=== PATIENT | male | born 1945 | race Hispanic/Latino ===

== ENCOUNTER 2020-04-16 09:25 | Inpatient (IN) | payer OTHER ==
--- NOTE | 2020-04-11 14:53 | Diagnostic Imaging Report ---
EXAMINATION: CHEST 2 VIEWS INDICATION: Pre-operative COMPARISON: None FINDINGS: LINES/TUBES:None LUNGS:The lungs are well-inflated. No focal consolidation or pulmonary edema. PLEURA:No pleural effusion or pneumothorax. MEDIASTINUM:The cardiomediastinal silhouette appears normal in size and shape. BONES/SOFT TISSUES:No acute osseous injury. ABDOMEN:No free air under the diaphragm. IMPRESSION: No focal pneumonia or pulmonary edema. Signed by: Sree Amato MD on 04/11/2020 2:49 PM
[2020-04-11 15:02] LABS: BASOPHILS # (AUTO) 0.1 (0.0-0.1); BASOPHILS % 1.1 % (0.0-1.0); EOSINOPHILS # (AUTO) 0.2 (0.0-0.4); HEMATOCRIT 42.2 % (38.2-49.6); HEMOGLOBIN 13.7 g/dL (14.0-18.0); LYMPHOCYTES # (AUTO) 1.3 (1.0-3.2); LYMPHOCYTES % 20.3 % (18.0-39.1); MEAN CORPUSCULAR HEMOGLOBIN 28.7 pg (28-32); MEAN CORPUSCULAR HGB CONC 32.5 g/dL (31-35); MEAN CORPUSCULAR VOLUME 88.3 fL (81-99); MONOCYTES # (AUTO) 0.8 (0.2-0.8); MONOCYTES % 12.3 % (4.4-11.3); NEUTROPHILS # (AUTO) 4.2 (2.1-6.9); PLATELET COUNT 180 x10e3/uL (140-360); RED BLOOD COUNT 4.78 x10e6/uL (4.3-5.7)
[2020-04-11 15:06] LABS: INR 0.97; PROTHROMBIN TIME 13.5 seconds (11.9-14.5)
[2020-04-11 15:07] LABS: PARTIAL THROMBOPLASTIN TIME 29.7 seconds (23.8-35.5)
[2020-04-11 15:13] LABS: ANION GAP 14.5 mmol/L (8-16); CALCIUM 9.2 mg/dL (8.4-10.2); CREATININE, SERUM 1.26 mg/dL (0.72-1.25); POTASSIUM 4.5 mmol/L (3.5-5.1)
[~2020-04-16] VITALS: Ht 180.3 cm; Wt 92.1 kg
[~2020-04-16 09:25] MED LIST: ATORVASTATIN CA20 MG PO; BUPROPION HCL100 MG PO; FINASTERIDE5 MG PO; FLOMAX0.4 MG PO; LORATADINE10 MG PO; PROTONIX20 MG PO; ZOLPIDEM TARTRAT5 MG PO
[2020-04-16] MEDS ORDERED: CEFEPIME 1GM/NS 0.9% 50 ML 50 ML IV ONE (09:54)
[2020-04-16] MEDS ORDERED: GENTAMICIN 80MG/NS 100 ML 200 ML IV ONE (09:55)
[2020-04-16] MEDS ORDERED: B&O 60MG R/S 60 MG SUPP PR ONE (12:07)
[2020-04-16] MEDS ORDERED: IOPAMIDOL 300MG/ML 50ML INFUS..BTL IV ONE (12:07)
[2020-04-16] MEDS ORDERED: DEXAMETHASONE SOD PHOS INJ 4 MG/ML VIAL ONE (12:22)
[2020-04-16] MEDS ORDERED: LIDOCAINE HCL 2% LOCAL INJ 5 ML SDV VIAL INJ ONE (12:22)
[2020-04-16] MEDS ORDERED: SEVOFLURANE INHAL SOLN 250 ML PEN BTL ONE (12:22)
[2020-04-16] MEDS ORDERED: ACETAMINOPHEN 1000 MG/100 ML IV ONE (12:22)
[2020-04-16] MEDS ORDERED: ONDANSETRON HCL INJ 2MG/ML 2ML 2 MG/ML VIAL ONE (12:22)
[2020-04-16] MEDS ORDERED: PROPOFOL IV EMULSION 10 MG/ML 20 ML VIAL ONE (12:22)
[2020-04-16] MEDS ORDERED: ACETAMINOPHEN/CODEINE 300MG - 30MG TAB PO PRN (14:15)
[2020-04-16] MEDS ORDERED: DIPHENHYDRAMINE HCL 25 MG CAP PO PRN (14:15)
[2020-04-16] MEDS ORDERED: ONDANSETRON HCL INJ 2MG/ML 2ML 2 MG/ML VIAL IV PRN (14:15)
[2020-04-16] MEDS ORDERED: B&O 60MG R/S 60 MG SUPP PR PRN (14:15)
--- OUTSIDE RECORDS SUMMARY | 2020-04-16 14:34 | XMS REPORT | Continuity of Care Document ---
Author Author [facility] t Organization [facility] Address [address] [place] [address] Phone Unavailable Care Team Providers Care Commercial Drone Pilot Name Role Phone GHANSHYAM HERMAN Unavailable Payers Payer Name Policy Type Policy Number Effective Date Expiration Date S ource Problems This patient has no known problems. Allergies, Adverse Reactions, Alerts Allergy Name Allergy Type Status Severity Reaction(s) Onset Date Inacti ve Date Treating Clinician Comments Source aspirin DA Active [place] 2015-11-27 00:00:00 [facility] Medications This patient has no known medications. Procedures This patient has no known procedures. Results Test Description Test Time Test Comments Results Result Comments Source CHEST 2 VIEWS 2020-04-11 14:49:00 [facility] [address] [address] Patient Name: KAYE SERRANO MR #: [id number] : 1945 Age/Sex: 74/M Req #: [id number] Adm Physician: Ordered by: GHANSHYAM HERMAN MD Report #: [id number] Location: OR Room/Bed: Procedure: [id number] DX/CHEST 2 VIEWS Exam Date: 04/11/20 Exam Time: 1430 REPORT STATUS: Signed EXAMINATION: CHEST 2 VIEWS INDICATION: Pre-operative COMPARISON: None FINDINGS: LINES/TUBES:None LUNGS:The lungs are well-inflated. No focal consolidation or pulmonary edema. PLEURA:No pleural effusion or pneumothorax. MEDIASTINUM:The cardiomediastinal silhouette appears normal in size and shape. BONES/SOFT TISSUES:No acute osseous injury. ABDOMEN:No free air under the diaphragm. IMPRESSION: No focal pneumonia or pulmonary edema. Signed by: Jessei Vazquez MD on 04/11/2020 2:49 PM Dictated By: JESSIE VAZQUEZ MD 1449 Transcribed By: COLLETTE on 04/11/20 1449 COPY TO: GHANSHYAM HERMAN MD - CT CHEST W/O CONTRAST 2018-12-19 10:33:00 Na me: KAYE SERRANO [facility] : 1945 Age/S: 73 / M [address] [facility] Unit #: [id number] Loc: [place] [address] Phys: Xenia Pinedo MD Acct: [id number] Dis Date: Status: REG CLI PHONE #: [phone] Exam Date: 12/19/2018 1010 FAX #: [phone] Reason: COUGH EXAMS: CPT CODE: [id number] CT CHEST W/O CONTRAST 38866 HISTORY: Cough. COMPARISON: November 29, 2015. CT chest without contrast: The lungs are clear of infiltrates, effusion or congestion no bronchiectasis, honeycombing or fibrosis or endobronchial lesions. Normal caliber unopacified aorta and pulmonary arteries. Unremarkable thyroid glands. Esophageal wall is not thickened. No pathologic adenopathy. Cardiac silhouette is normal without pericardial effusion. 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 Subcutaneous tissues and the musculature are normal in appearance. No lytic or blastic lesions are noted within the bony skeleton. DJD. IMPRESSION: The lungs are clear of infiltrates, effusion or congestion. No bronchiectasis, honeycombing or fibrosis. No pathologic adenopathy. at 1033 Reported and signed by: Adebayo Servin M.D. CC: Xenia Pinedo MD; Jessee Fields DO Technologist:Dayron Watters RT(R),(MR),(CT); CTDI: DLP: Trnscb Date/Time: 12/19/2018 (1033) [email or web address] Orig Print D/T: S: 12/19/2018 (1037) CTDI: DLP: PAGE 1 Signed Report - CT CHEST W/O CONTRAST 2018-12-19 10:33:00 Na me: MAGGIEKAYE YONG [facility] : 1945 Age/S: 73 / M [address] [facility] Unit #: [id number] Loc: [place] [address] Phys: Xenia Pinedo MD Acct: [id number] Dis Date: Status: DEP CLI PHONE #: [phone] Exam Date: 12/19/2018 1010 FAX #: [phone] Reason: COUGH EXAMS: CPT CODE: [id number] CT CHEST W/O CONTRAST 62149 HISTORY: Cough. COMPARISON: November 29, 2015. CT chest without contrast: The lungs are clear of infiltrates, effusion or congestion no bronchiectasis, honeycombing or fibrosis or endobronchial lesions. Normal caliber unopacified aorta and pulmonary arteries. Unremarkable thyroid glands. Esophageal wall is not thickened. No pathologic adenopathy. Cardiac silhouette is normal without pericardial effusion. 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 Subcutaneous tissues and the musculature are normal in appearance. No lytic or blastic lesions are noted within the bony skeleton. DJD. IMPRESSION: The lungs are clear of infiltrates, effusion or congestion. No bronchiectasis, honeycombing or fibrosis. No pathologic adenopathy. at 1033 Reported and signed by: Adebayo Servin M.D. CC: Xenia Pinedo MD; Jessee Fields DO Technologist:Dayron Watters RT(R),(MR),(CT); CTDI: DLP: Trnscb Date/Time: 12/19/2018 (1033) [email or web address] Orig Print D/T: S: 12/19/2018 (1037) CTDI: DLP: PAGE 1 Signed Report - XR CHEST 2 V 2017-09-29 12:19:00 Name: KAYE DA SILVA [facility] : 1945 Age/S:71 /M [address] [facility] Unit#:[id number] Loc: [place] [address] Phys: Jessee Fields DO Dis Date: PHONE #: [phone] Status: DEP CLI FAX #: [phone] Exam Date: 09/29/2017 Reason: CHRONIC COUGH EXAMS: CPT CODE: [id number] XR CHEST 2 V 59942 HISTORY: CHRONIC COUGH TECHNIQUE: PA and lateral chest x-ray COMPARISON: 11/27/15 FINDINGS: No airspace consolidation or pleural effusion. Normal heart size. Mediastinal silhouette is unremarkable. Thoracic spondylosis. IMPRESSION: No radiographic evidence of acute cardiopulmonary process. at 1219 Reported and signed by: Em Brink D.O. CC: Jessee Fields DO Technologist: Jose Angel Temple Trnscrpt Data: 09/29/2017 (1219) [email or web address] Orig Print D/T: S: 09/29/2017 (1222) PAGE 1 Signed Report - CT CHEST W/CONTRAST 2015-11-29 12:59:00 Name : KAYE SERRANO [facility] : 1945 Age/S: 70 / M [address] [facility] Unit #: [id number] Loc: [place] [address] Phys: Jeff Garcia MD Acct: [id number] Dis Date: Status: UNK PHONE #: [phone] Exam Date: 11/29/2015 1041 FAX #: [phone] Reason: SOB and chronic cough EXAMS: CPT CODE: [id number] CT CHEST W/CONTRAST [address]5827 EXAM: CT of the chest without contrast; INFORMATION: Chronic cough, COPD versus pneumonia; TECHNIQUE AND FINDINGS: 5 mm cuts were obtained through the chest during intravenous infusion of contrast material. Lung windows show no parenchymal abnormalities. There are no pleural effusions; no pneumothorax. This good enhancement of the pulmonary arteries; no filling defects. Small calcified plaques in the aortic arch; otherwise, the thoracic aorta is also unremarkable; no aneurysm, no dissection. No hilar or mediastinal adenopathy. IMPRESSION: Unremarkable CT scan of the chest; no acute abnormalities. at 8071 Reported and signed by: Andre Odonnell M.D. CC: Jeff Garcia Technologist:Dariela Jean Baptiste RT(R),CT; CTDI: DLP: Trnscb Date/Time: 11/29/2015 (9487) [email or web address] Orig Print D/T: S: 11/29/2015 (1121) CTDI: DLP: PAGE 1 Signed Report - XR CHEST 2 V 2015-11-27 17:08:00 FAX: Reg Schmitz [place]: St: [facility] -- Name: KAYE SERRANO [facility] : 1945 Age/S: 70/M [address] [facility] Unit #: [id number] Loc: [place] [address] Phys: Reg Schmitz MD Acct: [id number] Dis Date: Status: UNK PHONE #: [phone] Exam Date: 11/27/2015 9304 FAX #: [phone] Reason: cough EXAMS: CPT CODE: [id number] XR CHEST 2 V 84162 REASON FOR EXAM: cough Exam Order Date: 11/27/2015 4:43 PM Ordering Josafat: Reg Schmitz MD PROCEDURE: - XR CHEST 2 V COMPARISON: FINDINGS: PA and lateral views of the chest show clear lungs. No evidence of consolidation. No evidence of effusion. The heart size is within normal limits. Pulmonary vasculatures are unremarkable. The osseous structures are grossly intact. IMPRESSION: No active disease. at 1704 Reported and signed by: Aquilino Yeager M.D. CC: Reg Schmitz MD Technologist: Fredrick Mcdowell RT(R) Trnscrd Date/Time/By: 11/27/2015 (5344) : By: TheodoreL Orig Print D/T: S: 11/27/2015 (5624) PAGE 1 Signed Report
[2020-04-16 15:03] LABS: BASOPHILS % 0.6 % (0.0-1.0); EOSINOPHILS # (AUTO) 0.1 (0.0-0.4); EOSINOPHILS % 1.7 % (0.0-6.0); HEMATOCRIT 41.5 % (38.2-49.6); HEMOGLOBIN 13.1 g/dL (14.0-18.0); LYMPHOCYTES % 13.9 % (18.0-39.1); MEAN CORPUSCULAR HEMOGLOBIN 28.5 pg (28-32); MEAN CORPUSCULAR HGB CONC 31.6 g/dL (31-35); MEAN CORPUSCULAR VOLUME 90.4 fL (81-99); MONOCYTES # (AUTO) 0.3 (0.2-0.8); MONOCYTES % 3.9 % (4.4-11.3); NEUTROPHILS # (AUTO) 5.6 (2.1-6.9); NEUTROPHILS % 79.5 % (38.7-80.0); PLATELET COUNT 146 x10e3/uL (140-360); RED BLOOD COUNT 4.59 x10e6/uL (4.3-5.7); RED CELL DISTRIBUTION WIDTH 14.6 % (11.7-14.4)
[2020-04-16 15:21] LABS: ANION GAP 14.3 mmol/L (8-16); BLOOD UREA NITROGEN 16 mg/dL (7-26); BUN/CREATININE RATIO 15 (6-25); CALCIUM 8.5 mg/dL (8.4-10.2); CARBON DIOXIDE 22 mmol/L (22-29); CHLORIDE 110 mmol/L (98-107); CREATININE, SERUM 1.07 mg/dL (0.72-1.25); EST GLOMERULAR FILTRATION RATE > 60 ML/MIN (60-); GLUCOSE 114 mg/dL (74-118); POTASSIUM 4.3 mmol/L (3.5-5.1); SODIUM 142 mmol/L (136-145)
[2020-04-16 15:56] LABS: LYMPHOCYTES % (MANUAL) 13 % (19-48); MONOCYTES % (MANUAL) 3 % (3.4-9.0); NEUTROPHILS % (MANUAL) 81 % (40-74); RBC MORPHOLOGY COMMENT NORMAL
[2020-04-16 15:57] LABS: PLATELET ESTIMATE ADEQUATE; PLATELET MORPHOLOGY COMMENT NORMAL
[2020-04-16] MEDS ORDERED: FENTANYL CITRATE/PF 100MCG/2 ML INJ ONE (16:00)
[2020-04-16 16:35] VITALS: BP 135/73
--- NOTE | 2020-04-16 16:35 | NUR ---
patient arrived to room 115. dark, red output noticed in [place]. speed of CBI increased and urine turned clearer. patient denied any pain or any needs.
[2020-04-16] MEDS: D5.45%NS/KCL 20MEQ 1,000 ML IV SCH (18:02)
[2020-04-16] MEDS: DOCUSATE SODIUM 100 MG CAP PO SCH (18:02)
[2020-04-16] MEDS: PANTOPRAZOLE SOD 40 MG TABEC PO SCH (18:20)
[2020-04-16] MEDS: ACETAMINOPHEN 1000 MG/100 ML IV SCH (18:20)
[2020-04-16] MEDS: PHENAZOPYRIDINE HCL 100 MG TAB PO SCH (18:20)
--- NOTE | 2020-04-16 19:45 | NUR ---
Dr. Weinstein paged to notify him of color of output via CBI. waiting for return page.
[2020-04-16 20:00] VITALS: BP 107/64
[2020-04-16] MEDS ORDERED: ZOLPIDEM TARTRATE 5 MG TAB PO SCH (21:00)
[2020-04-16] MEDS ORDERED: ATORVASTATIN 20 MG TAB PO SCH (21:00)
[2020-04-16] MEDS: ZOLPIDEM TARTRATE 10 MG TAB PO SCH (22:03)
[2020-04-16] MEDS: ATORVASTATIN 40 MG TAB PO SCH (22:03)
[2020-04-17] VITALS (8 sets, daily range): BP systolic 106–138; BP diastolic 59–76
[2020-04-17] MEDS: ACETAMINOPHEN 1000 MG/100 ML IV SCH ×3 (01:10→11:42)
[2020-04-17] MEDS: D5.45%NS/KCL 20MEQ 1,000 ML IV SCH ×5 (01:36→22:17)
[2020-04-17 05:54] LABS: BASOPHILS % 0.3 % (0.0-1.0); EOSINOPHILS # (AUTO) 0.1 (0.0-0.4); EOSINOPHILS % 0.4 % (0.0-6.0); HEMATOCRIT 36.1 % (38.2-49.6); HEMOGLOBIN 11.8 g/dL (14.0-18.0); LYMPHOCYTES # (AUTO) 1.4 (1.0-3.2); LYMPHOCYTES % 11.7 % (18.0-39.1); MEAN CORPUSCULAR HEMOGLOBIN 28.6 pg (28-32); MEAN CORPUSCULAR HGB CONC 32.7 g/dL (31-35); MEAN CORPUSCULAR VOLUME 87.6 fL (81-99); MONOCYTES # (AUTO) 1.3 (0.2-0.8); MONOCYTES % 10.6 % (4.4-11.3); NEUTROPHILS # (AUTO) 9.4 (2.1-6.9); NEUTROPHILS % 76.5 % (38.7-80.0); PLATELET COUNT 178 x10e3/uL (140-360); RED BLOOD COUNT 4.12 x10e6/uL (4.3-5.7); RED CELL DISTRIBUTION WIDTH 14.6 % (11.7-14.4)
[2020-04-17 06:14] LABS: ANION GAP 9.2 mmol/L (8-16); BLOOD UREA NITROGEN 13 mg/dL (7-26); BUN/CREATININE RATIO 12 (6-25); CALCIUM 8.5 mg/dL (8.4-10.2); CARBON DIOXIDE 26 mmol/L (22-29); CHLORIDE 109 mmol/L (98-107); CREATININE, SERUM 1.06 mg/dL (0.72-1.25); EST GLOMERULAR FILTRATION RATE > 60 ML/MIN (60-); GLUCOSE 122 mg/dL (74-118); POTASSIUM 4.2 mmol/L (3.5-5.1); SODIUM 140 mmol/L (136-145)
--- NOTE | 2020-04-17 07:00 | NUR ---
RECEIVED PATIENT RESTING IN BED NO S/S OF DISTRESS. BED LOW, WHEELS LOCKED, SIDE RAILS X2. CALL LIGHT IN REACH WILL CONTINUE TO MONITOR PATIENT.
[2020-04-17] MEDS: PANTOPRAZOLE SOD 40 MG TABEC PO SCH ×2 (08:11→16:28)
[2020-04-17] MEDS: PHENAZOPYRIDINE HCL 100 MG TAB PO SCH ×3 (08:11→18:08)
[2020-04-17] MEDS: CEFTRIAXONE SOD 1 GM/NS 50 ML 50 ML IV SCH (08:11)
[2020-04-17] MEDS: DOCUSATE SODIUM 100 MG CAP PO SCH ×2 (08:11→16:28)
[2020-04-17] MEDS: BUPROPION HCL 100 MG TAB PO SCH (08:11)
[2020-04-17] MEDS: LORATADINE 10 MG TAB PO SCH (08:11)
[2020-04-17] MEDS: ZOLPIDEM TARTRATE 10 MG TAB PO SCH (22:16)
[2020-04-17] MEDS: ATORVASTATIN 40 MG TAB PO SCH (22:16)
[2020-04-18] VITALS: BP 130/79
[2020-04-18 04:00] VITALS: BP 126/77
[2020-04-18] MEDS: D5.45%NS/KCL 20MEQ 1,000 ML IV SCH ×3 (04:59→22:14)
[2020-04-18 05:44] LABS: BASOPHILS # (AUTO) 0.1 (0.0-0.1); BASOPHILS % 0.6 % (0.0-1.0); EOSINOPHILS # (AUTO) 0.3 (0.0-0.4); EOSINOPHILS % 3.3 % (0.0-6.0); HEMATOCRIT 35.5 % (38.2-49.6); HEMOGLOBIN 11.5 g/dL (14.0-18.0); LYMPHOCYTES # (AUTO) 1.7 (1.0-3.2); MEAN CORPUSCULAR HGB CONC 32.4 g/dL (31-35); MEAN CORPUSCULAR VOLUME 89.6 fL (81-99); MONOCYTES % 12.2 % (4.4-11.3); NEUTROPHILS # (AUTO) 5.2 (2.1-6.9); NEUTROPHILS % 62.5 % (38.7-80.0); PLATELET COUNT 149 x10e3/uL (140-360); RED BLOOD COUNT 3.96 x10e6/uL (4.3-5.7); RED CELL DISTRIBUTION WIDTH 14.7 % (11.7-14.4)
[2020-04-18 06:14] LABS: ANION GAP 9.8 mmol/L (8-16); BLOOD UREA NITROGEN 8 mg/dL (7-26); BUN/CREATININE RATIO 8 (6-25); CALCIUM 8.5 mg/dL (8.4-10.2); CARBON DIOXIDE 24 mmol/L (22-29); CHLORIDE 111 mmol/L (98-107); CREATININE, SERUM 0.98 mg/dL (0.72-1.25); EST GLOMERULAR FILTRATION RATE > 60 ML/MIN (60-); GLUCOSE 114 mg/dL (74-118); POTASSIUM 3.8 mmol/L (3.5-5.1); SODIUM 141 mmol/L (136-145)
[2020-04-18 08:18] VITALS: BP 134/78
[2020-04-18] MEDS: PANTOPRAZOLE SOD 40 MG TABEC PO SCH ×2 (08:29→16:28)
[2020-04-18] MEDS: DOCUSATE SODIUM 100 MG CAP PO SCH ×2 (08:29→16:28)
[2020-04-18] MEDS: LORATADINE 10 MG TAB PO SCH (08:29)
[2020-04-18] MEDS: PHENAZOPYRIDINE HCL 100 MG TAB PO SCH ×3 (08:29→16:28)
[2020-04-18] MEDS: BUPROPION HCL 100 MG TAB PO SCH (08:29)
[2020-04-18] MEDS: CEFTRIAXONE SOD 1 GM/NS 50 ML 50 ML IV SCH (08:29)
[2020-04-18 09:16] VITALS: BP 134/78
--- NOTE | 2020-04-18 16:28 | NUR ---
[place] DC. CATHETER TIP INTACT. PATIENT DUE TO VOID.
[2020-04-18 16:51] VITALS: BP 147/87
--- NOTE | 2020-04-18 17:31 | NUR ---
PATIENT HAS VOIDED SINCE SEXTON REMOVAL.
--- NOTE | 2020-04-18 18:51 | NUR ---
3 SERIAL URINES COLLECTED. PATIENT VOIDING. URINE STILL HAS HEMATURIA PRESENT. EDUCATED PATIENT ON INCREASING FLUID INTAKE. CALL LIGHT IN REACH WILL CONTINUE TO MONITOR PATIENT.
--- NOTE | 2020-04-18 19:05 | NUR ---
RECEIVED BEDSIDE SHIFT REPORT FROM PREVIOUS NURSE. CALL LIGHT WITHIN REACH. PATIENT IN BED.
[2020-04-18 20:00] VITALS: BP 154/88
[2020-04-18] MEDS: ATORVASTATIN 40 MG TAB PO SCH (22:11)
[2020-04-18] MEDS: ZOLPIDEM TARTRATE 10 MG TAB PO SCH (22:14)
--- NOTE | 2020-04-18 22:20 | NUR ---
CALLED DR. HERMAN ABOUT THE PATIENT'S URINE WHICH IS STILL RED. DR. HERMAN SAID TO KEEP THE PATIENT OVERNIGHT AND ONLY DISCHARGE THE PATIENT AFTER THE PATIENT HAS 5 CLEAR URINE SAMPLES WITH NO BLOOD.
[2020-04-19 01:01] VITALS: BP 139/78
[2020-04-19 04:00] VITALS: BP 106/51
[2020-04-19 05:44] LABS: BASOPHILS # (AUTO) 0.1 (0.0-0.1); BASOPHILS % 0.7 % (0.0-1.0); EOSINOPHILS # (AUTO) 0.3 (0.0-0.4); EOSINOPHILS % 3.2 % (0.0-6.0); HEMOGLOBIN 11.9 g/dL (14.0-18.0); LYMPHOCYTES # (AUTO) 1.5 (1.0-3.2); LYMPHOCYTES % 14.7 % (18.0-39.1); MEAN CORPUSCULAR HEMOGLOBIN 27.9 pg (28-32); MEAN CORPUSCULAR HGB CONC 32.2 g/dL (31-35); MEAN CORPUSCULAR VOLUME 86.7 fL (81-99); MONOCYTES # (AUTO) 1.5 (0.2-0.8); MONOCYTES % 13.9 % (4.4-11.3); PLATELET COUNT 173 x10e3/uL (140-360); RED BLOOD COUNT 4.27 x10e6/uL (4.3-5.7); RED CELL DISTRIBUTION WIDTH 14.7 % (11.7-14.4)
[2020-04-19 06:06] LABS: ANION GAP 11.2 mmol/L (8-16); BLOOD UREA NITROGEN 7 mg/dL (7-26); BUN/CREATININE RATIO 7 (6-25); CALCIUM 8.7 mg/dL (8.4-10.2); CARBON DIOXIDE 23 mmol/L (22-29); CHLORIDE 108 mmol/L (98-107); CREATININE, SERUM 0.97 mg/dL (0.72-1.25); EST GLOMERULAR FILTRATION RATE > 60 ML/MIN (60-); GLUCOSE 118 mg/dL (74-118); POTASSIUM 4.2 mmol/L (3.5-5.1); SODIUM 138 mmol/L (136-145)
[2020-04-19] MEDS: D5.45%NS/KCL 20MEQ 1,000 ML IV SCH (06:37)
--- NOTE | 2020-04-19 06:59 | NUR ---
GAVE BEDSIDE SHIFT REPORT TO ONCOMING NURSE. CALL LIGHT WITHIN REACH. PATIENT IN BED. HOURLY ROUNDING DONE.
[2020-04-19] MEDS: PANTOPRAZOLE SOD 40 MG TABEC PO SCH (08:00)
[2020-04-19] MEDS ORDERED: CEFTIN PO (08:14)
[2020-04-19] MEDS ORDERED: TYLENOL WITH C1 EACH PO (08:14)
[2020-04-19 08:30] VITALS: BP 138/73
[2020-04-19 08:31] VITALS: BP 138/73
[2020-04-19] MEDS: BUPROPION HCL 100 MG TAB PO SCH (09:00)
[2020-04-19] MEDS: CEFTRIAXONE SOD 1 GM/NS 50 ML 50 ML IV SCH (09:00)
[2020-04-19] MEDS: DOCUSATE SODIUM 100 MG CAP PO SCH (09:00)
[2020-04-19] MEDS: LORATADINE 10 MG TAB PO SCH (09:00)
--- NOTE | 2020-04-19 09:30 | NUR ---
Georgette TORCH BURNER to see pt. explained to Georgette Pollack wanted 5 clear specimems of clear urine before discharge. Georgette stated she notified Dr Park of pt hemoglobin increasing. Georgette stated Dr Park said ok to dc due to increase in hemoglobin and current blood in urine is old
[2020-04-19] MEDS: PHENAZOPYRIDINE HCL 100 MG TAB PO SCH (09:56)
--- NOTE | 2020-04-19 10:50 | NUR ---
dr Davila rounded on pt. ok for pt to dc home. Dr Davila aware of pt urine bloody but stated ok to dc due to pt hgb increased
--- NOTE | 2020-04-19 12:48 | Discharge Summary ---
ADMISSION DIAGNOSES: 1. Prostatism. 2. Hyperlipidemia. 3. Gastroesophageal reflux disease. 4. Insomnia. DISCHARGE DIAGNOSES: 1. Prostatism. 2. Hyperlipidemia. 3. Gastroesophageal reflux disease. 4. Insomnia. MEDICAL HISTORY: Hyperlipidemia, GERD, and insomnia. SURGICAL HISTORY: Lumbar spine and appendectomy. FAMILY HISTORY: The patient's sister has diabetes and cancer. SOCIAL HISTORY: Occasional alcohol use. HOSPITAL COURSE: A 74-year-old male, admitted status post TURP on 04/15/[address] Weinstein. He was initially with continuous bladder irrigation and Kline placement. Chest x-ray was negative. Hemoglobin dropped from 13 on admission to 11 and remained stable at 11. Kline was discharged and serial urines were collected. The patient can discharge home per Urology recommendation. He is to follow up with primary care and Urology in 1 to 2 weeks. He was given a prescription for pain medicine and Ceftin. The patient understands instructions and agrees to plan. Vital signs stable. The patient is afebrile. Dictated by Georgette Martin NP MD JANICE Stubbs/LILLIAN /[id number]
--- NOTE | 2020-04-20 22:46 | Operative Report ---
DATE OF PROCEDURE: 04/16/2020 SURGEON: Thierry Weinstein MD PREOPERATIVE DIAGNOSES: 1. Obstructive benign prostatic hypertrophy. 2. Urinary tract infections. 3. Gross hematuria. 4. Microhematuria. POSTOPERATIVE DIAGNOSES: 1. Obstructive benign prostatic hypertrophy. 2. Urinary tract infections. 3. Gross hematuria. 4. Microhematuria. OPERATIONS PERFORMED: 1. Cystourethroscopy with bilateral ureteral catheterization and retrograde ureteropyelography (separate procedure performed for the urinary tract infections and hematuria). 2. Interpretation of retrograde ureteropyelography. 3. Supervision of fluoroscopy, no radiologist present. 4. Cystourethroscopy with transurethral resection of the prostate. ANESTHESIA: General. COMPLICATIONS: None. CLINICAL SUMMARY: Kel Washington is a 74-year-old man with the above preoperative diagnoses. He is brought for the above procedures. He is aware of the risks of bleeding, infection, injury to adjacent structures, need for additional procedures, and elected to proceed. OPERATIVE PROCEDURE IN DETAIL: Informed consent was verified retrograde. Kel Washington was properly identified, taken to the operating room, placed in the cystoscopy table in supine position, and anesthesia was uneventfully begun. The patient was then carefully and gently repositioned in dorsal lithotomy position with all pressure points well padded. His genitalia were prepared and draped in usual sterile fashion. The cystoscope sheath with visual obturator in place was atraumatically inserted into the patient's urethra, was guided unremarkable distal urethra. The urethral sphincteric region was unremarkable. The prostate bed was significant for trilobar prostatic hypertrophy with a huge intravesical median lobe. Panendoscopy of the urinary bladder revealed grade 2 trabeculations, but there were no tumors, no stones, and no diverticula. No suspicious mucosal lesions were identified. An 8-Greek catheter was used to cannulate each ureter and retrograde ureteropyelography was performed. Interpretation of retrograde ureteropyelography contrast was instilled in retrograde fashion bilaterally. There were no tumors, no stones, and no diverticula. There was severe J-hooking noted. Unobstructed drainage was observed bilaterally fluoroscopically. The resectoscope was placed with the obturator in place and transurethral resection of the prostate was then carried out. First, we worked on the huge median lobe. We resected the median lobe down to its base, taking care to avoid injuring the ureteral orifices. We then resected both lateral lobes from the bladder neck to maneuver past the verumontanum and down the surgical capsule. Pinpoint electrocautery was utilized to achieve hemostasis. This resulted in a wide open prostatic bed. All chips were evacuated. This was verified endoscopically. The resectoscope was then withdrawn and continuous irrigation Kline catheter was then placed. It was irrigated to-and-fro to ensure it worked properly. It was placed on continuous irrigation with clear efflux. A belladonna and opium suppository were placed revealing a 50 g prostate, that is smooth and non-fluctuant without any nodules. The patient was then uneventfully reversed from anesthesia and taken to recovery room in stable condition. There were no complications to the procedure. He tolerated the procedure well. We will proceed with routine postoperative care and ongoing urological followup. Thierry Wienstein MD [place]/MODL /[id number] cc: Jessee Fields DO
== END 2020-04-19 12:35 | disposition home or self-care (01) | DRG 713 ==
LOC: OR 09:25 → PACU V 14:07 → MED/SURG 16:40
PROVIDERS: ADMIT Internal Medicine; ATTEND Internal Medicine
PROC: 0VB08ZZ Excision of Prostate, Via Natural or Artificial Opening Endoscopic (ICD-10-PCS; 2020-04-16)
PROC: BT141ZZ Fluoroscopy of Kidneys, Ureters and Bladder using Low Osmolar Contrast (ICD-10-PCS; principal; 2020-04-16 11:00)
DX: N40.1 Benign prostatic hyperplasia with lower urinary tract symptoms (principal); N39.0 Urinary tract infection, site not specified; N41.9 Inflammatory disease of prostate, unspecified; E78.5 Hyperlipidemia, unspecified; K21.9 Gastro-esophageal reflux disease without esophagitis; G47.00 Insomnia, unspecified; R39.14 Feeling of incomplete bladder emptying; R35.1 Nocturia; R39.12 Poor urinary stream; R31.29 Other microscopic hematuria; N52.9 Male erectile dysfunction, unspecified; N50.0 Atrophy of testis; N32.81 Overactive bladder; E78.00 Pure hypercholesterolemia, unspecified; N18.9 Chronic kidney disease, unspecified; I12.9 Hypertensive chronic kidney disease with stage 1 through stage 4 chronic kidney disease, or unspecified chronic kidney disease; Z90.49 Acquired absence of other specified parts of digestive tract; Z83.3 Family history of diabetes mellitus; Z80.9 Family history of malignant neoplasm, unspecified; Z11.59 Encounter for screening for other viral diseases
CPT/HCPCS: 36415; 71046; 74420; 80048; 83735; 85025; 85610; 85730; 87635; 88305; 93005; C1758; J0692; J0696; J1100; J1580; J2001; J2405; J3010

== ENCOUNTER → 2020-12-10 | Outpatient (CLI) | payer OTHER ==
[~2020-12-10] MED LIST changes: +CEFTIN PO; +TYLENOL WITH C1 EACH PO
== END ==
LOC: US 12:10
PROVIDERS: ATTEND Urology
DX: N39.0 Urinary tract infection, site not specified (principal)
CPT/HCPCS: 74018; 76770

== ENCOUNTER → 2021-12-04 | Day surgery (SDC) | payer OTHER ==
[2021-12-02 10:28] LABS: BASOPHILS # (AUTO) 0.1 (0.0-0.1); BASOPHILS % 0.9 % (0.0-1.0); EOSINOPHILS # (AUTO) 0.2 (0.0-0.4); EOSINOPHILS % 2.8 % (0.0-6.0); HEMATOCRIT 38.4 % (38.2-49.6); HEMOGLOBIN 11.7 g/dL (14.0-18.0); LYMPHOCYTES # (AUTO) 1.5 (1.0-3.2); LYMPHOCYTES % 18.3 % (18.0-39.1); MEAN CORPUSCULAR HEMOGLOBIN 26.5 pg (28-32); MEAN CORPUSCULAR HGB CONC 30.5 g/dL (31-35); MEAN CORPUSCULAR VOLUME 86.9 fL (81-99); MONOCYTES # (AUTO) 0.9 (0.2-0.8); MONOCYTES % 11.2 % (4.4-11.3); NEUTROPHILS # (AUTO) 5.4 (2.1-6.9); NEUTROPHILS % 66.2 % (38.7-80.0); PLATELET COUNT 193 x10e3/uL (140-360); RED BLOOD COUNT 4.42 x10e6/uL (4.3-5.7); RED CELL DISTRIBUTION WIDTH 15.6 % (11.7-14.4)
[2021-12-02 10:46] LABS: ANION GAP 13.7 mmol/L (8-16); CALCIUM 9.1 mg/dL (8.4-10.2); CREATININE, SERUM 1.15 mg/dL (0.72-1.25); POTASSIUM 3.7 mmol/L (3.5-5.1)
[~2021-12-04] MED LIST changes: +BELLADONNA/OPIUM 30 MG SUPP RC ONE; +CEFEPIME HCL 1 GM VIAL ONE; +DEXAMETHASONE SOD PHOS INJ 4 MG/ML SDV ONE; +FENTANYL CITRATE/PF 100MCG/2 ML INJ ONE; +FLONASE ALLERG9.9 ML INH; +GENTAMICIN 80MG/NS 100 ML 200 ML IV ONE; +IOPAMIDOL 300MG/ML 50ML INFUS..BTL IV ONE; +LIDOCAINE HCL 2% LOCAL INJ 5 ML SDV VIAL INJ ONE; +ONDANSETRON HCL INJ 2MG/ML 2ML 2 MG/ML VIAL ONE; +POVIDONE IODINE 0.05% 0.05 % ML PO ONE; +PROAIR HFA INH8.5 GM INH; +PROPOFOL IV EMULSION 10 MG/ML 20 ML VIAL ONE; +SEVOFLURANE INHAL SOLN 250 ML PEN BTL ONE; +SODIUM CHLORIDE 0.9% 50ML 50 ML ONE; +WIXELA 500-501 EACH INH
[2021-12-04 10:05] VITALS: BP 134/73
== END | disposition home or self-care (01) ==
LOC: OR 06:30
PROVIDERS: ATTEND Urology
DX: N35.912 Unspecified bulbous urethral stricture, male (principal); N40.1 Benign prostatic hyperplasia with lower urinary tract symptoms; N13.8 Other obstructive and reflux uropathy; R39.14 Feeling of incomplete bladder emptying; R39.12 Poor urinary stream; N32.81 Overactive bladder; N52.9 Male erectile dysfunction, unspecified; N50.0 Atrophy of testis; E66.9 Obesity, unspecified; N21.0 Calculus in bladder; R35.1 Nocturia; N32.89 Other specified disorders of bladder; N30.20 Other chronic cystitis without hematuria; G47.33 Obstructive sleep apnea (adult) (pediatric); J45.909 Unspecified asthma, uncomplicated; I10 Essential (primary) hypertension; E78.5 Hyperlipidemia, unspecified; K21.9 Gastro-esophageal reflux disease without esophagitis; Z79.82 Long term (current) use of aspirin; Z79.899 Other long term (current) drug therapy; Z98.890 Other specified postprocedural states; Z68.30 Body mass index [BMI] 30.0-30.9, adult
CPT/HCPCS: 36415; 71046; 74420; 80048; 85025; 87086; 93005; J0692; J1100; J1580; J2001; J2405; J3010; U0002

== ENCOUNTER → 2022-04-27 | Outpatient (CLI) | payer OTHER ==
[~2022-04-27] MED LIST changes: -BELLADONNA/OPIUM 30 MG SUPP RC ONE; -CEFEPIME HCL 1 GM VIAL ONE; -DEXAMETHASONE SOD PHOS INJ 4 MG/ML SDV ONE; -FENTANYL CITRATE/PF 100MCG/2 ML INJ ONE; -GENTAMICIN 80MG/NS 100 ML 200 ML IV ONE; -IOPAMIDOL 300MG/ML 50ML INFUS..BTL IV ONE; -LIDOCAINE HCL 2% LOCAL INJ 5 ML SDV VIAL INJ ONE; -ONDANSETRON HCL INJ 2MG/ML 2ML 2 MG/ML VIAL ONE; -POVIDONE IODINE 0.05% 0.05 % ML PO ONE; -PROPOFOL IV EMULSION 10 MG/ML 20 ML VIAL ONE; -SEVOFLURANE INHAL SOLN 250 ML PEN BTL ONE; -SODIUM CHLORIDE 0.9% 50ML 50 ML ONE
== END ==
LOC: CT 11:57
PROVIDERS: ATTEND Urology
DX: N20.0 Calculus of kidney (principal)
CPT/HCPCS: 74176